=== PATIENT | male | born 1970 | race Caucasian/White ===

== ENCOUNTER 2024-10-16 20:49 | Emergency (ER) | payer BC ==
[2024-10-16] MEDS ORDERED: Sodium Chloride 0.9% 10 ML Syringe FLUSH PRN (21:12)
[2024-10-16] MEDS: Amiodarone 360 MG/200 ML 360 MG/200 ML BAG IV ONE (21:15)
[2024-10-16 21:18] LABS: BASOPHILS ABSOLUTE AUTO 0.1 K/mm3 (0.0-0.2); BASOPHILS PERCENT AUTO 0.8 % (0.0-1.0); EOSINOPHILS ABSOLUTE AUTO 0.2 K/mm3 (0.0-0.4); EOSINOPHILS PERCENT AUTO 1.6 % (0.0-6.0); HEMATOCRIT 52.5 % (42.0-52.0); HEMOGLOBIN 18.2 gm/dl (14.0-18.0); IMMATURE GRAN ABSOLUTE AUTO 0.04 K/mm3 (0.00-0.05); IMMATURE GRAN PERCENT AUTO 0.4 % (0.0-0.4); LYMPHOCYTES ABSOLUTE AUTO 2.5 K/mm3 (1.0-4.8); LYMPHOCYTES PERCENT AUTO 25.2 % (24.0-44.0); MEAN CORPUSCULAR HEMOGLOBIN 30.7 pg (28.0-32.0); MEAN CORPUSCULAR HGB CONC 34.7 g/dl (32.0-36.0); MEAN CORPUSCULAR VOLUME 88.5 fl (83.0-99.0); MEAN PLATELET VOLUME 10.2 fl (9.4-12.4); MONOCYTES ABSOLUTE AUTO 0.5 K/mm3 (0.0-0.8); MONOCYTES PERCENT AUTO 4.5 % (0.0-8.0); NEUTROPHILS ABSOLUTE AUTO 6.7 K/mm3 (1.8-7.7); NEUTROPHILS PERCENT AUTO 67.5 % (41.0-71.0); PLATELET COUNT,PLT 216 K/mm3 (150-400); RED BLOOD CELL COUNT 5.93 M/mm3 (4.52-5.90); WHITE BLOOD CELL COUNT,WBC 9.97 K/mm3 (3.9-11.3)
[2024-10-16] MEDS: Aspirin 81 MG Tab.Chew PO ONE (21:18)
[2024-10-16 21:33] LABS: A/G RATIO 1.2 (1-2); ALBUMIN 4.5 g/dl (3.4-5.0); ANION GAP 15.4 (5-15); BILIRUBIN TOTAL 0.8 mg/dL (0.2-1.0); BUN/CREATININE RATIO 19.2 (14-18); CALCIUM 9.4 mg/dL (8.5-10.1); CREATININE 1.2 mg/dL (0.7-1.3); EST CRCL DRUG DOSING (CG) 78.61 mL/min; POTASSIUM,K 3.4 mEq/L (3.5-5.1); PROTEIN TOTAL,TP 8.2 g/dl (6.4-8.2)
[2024-10-16] MEDS: Amiodarone 360 MG/200 ML 200 ML ONE (21:37)
[2024-10-16] MEDS: Amiodarone 150 MG/3 ML SDV ONE (21:59)
[2024-10-16] MEDS: Potassium Chloride 20 MEQ Tab.ER PO ONE (22:05)
[2024-10-16] MEDS: Furosemide 100 MG/10 ML SDV IVPUSH ONE (22:05)
[2024-10-16] MEDS: Metoprolol Tartrate 5 MG/5 ML SDV IVPUSH ONE ×3 (22:23→22:46)
[2024-10-16] MEDS: Metoprolol Tartrate 5 MG/5 ML SDV ONE ×2 (22:42→22:57)
[2024-10-16] MEDS: Amiodarone 150 MG/100 ML 100 ML IV ONE (23:13)
[2024-10-17 01:40] VITALS: BP 139/87; PULSE 80
== END 2024-10-17 ==
LOC: JD.ED 20:49
DX: I42.9 Cardiomyopathy, unspecified (principal); E78.00 Pure hypercholesterolemia, unspecified; I10 Essential (primary) hypertension; Z79.51 Long term (current) use of inhaled steroids; Z79.899 Other long term (current) drug therapy
CPT/HCPCS: 36415; 71045; 80053; 83735; 83880; 84484; 85025; 85379; 93005; 94660; 96365; 96366; 96375; 99285; A9270; J0282; J0283; J1938; J3490; 93010